=== PATIENT | female | born 1980 | race Hispanic/Latino ===

== ENCOUNTER 2017-04-08 15:44 | Outpatient (CLI) | payer OTHER ==
--- NOTE | 2017-04-08 16:45 | Ultrasound Report ---
Left mammogram and left breast ultrasound: The patient presents with which she indicates is a stable palpable nodule in the medial left breast. A marker was placed over the area of concern. Routine views are compared to her prior exam in 2013 at which time the nodule was also palpable. The marker is in the same location. The breast pattern is generally fatty replaced and as previously noted there is no mammographic finding in relationship to the marker. Ultrasound over the area of the sternum is also unremarkable. Of note is that in the lateral breast on the prior ultrasound an elongated homogeneously hypoechoic mass was identified in the 2:00 location and consider lymph node. This is again identified as being unchanged but it's unclear as to whether it represents a lymph node or focal fat. Impression: Negative left mammogram and benign left breast ultrasound. The palpable finding is not identified on either modality. Recommendation: Clinical followup and age-appropriate mammogram followup. Any further evaluation at this time should be based on your concern. BI-RADS CATEGORY: 2 = Benign ACR BI-RADS MAMMOGRAPHIC CODES: 0 = Needs additional imaging evaluation; 1 = Negative; 2 = Benign; 3 = Probably benign; 4 = Suspicious; 5 = Malignant; 6 = Known biopsy-proven malignancy COMMENT: 1. Dense breast tissue, i.e., adenosis, fibrocystic changes, etc., may obscure an underlying neoplasm. 2. Approximately 10% of cancers are not detected with mammography. 3. A negative mammography report should not delay biopsy if a clinically suspicious mass is present.
== END 2017-04-08 15:45 | disposition home or self-care (01) ==
LOC: SPVWC 15:44
PROVIDERS: ATTEND Internal Medicine
DX: N63 Unspecified lump in breast (principal)
CPT/HCPCS: 76642; G0206